=== PATIENT | female | born 1980 | race Hispanic/Latino ===

== ENCOUNTER → 2017-08-10 | Outpatient (CLI) | payer OTHER | END | disposition home or self-care (01) | LOC: RAH 10:56 | PROVIDERS: ATTEND Family Medicine | DX: E03.9 Hypothyroidism, unspecified (principal) | CPT/HCPCS: 76536 ==

== ENCOUNTER → 2023-11-02 | Outpatient (CLI) | payer OTHER | END | disposition home or self-care (01) | LOC: RAH 10:48 | PROVIDERS: ATTEND Internal Medicine Gastroenterology | DX: R10.13 Epigastric pain (principal); R14.0 Abdominal distension (gaseous) | CPT/HCPCS: 78264; A9541 ==